=== PATIENT | female | born 1960 | race Caucasian/White ===

== ENCOUNTER 2019-01-05 17:00 | Outpatient (AMBR) | payer BC, OTHER, SELFPAY ==
--- NOTE | 2018-12-21 15:48 | PTNOTE_ITS ---
PT OP Initial Eval Patient Information Visit Reasons: knee pain Medical Diagnosis: Treatment Dx #1: L knee pain Start of Care: 12/21/18 Date of Onset: June 2018 Initial Assessment Subjective Pt returns to therapy s/p L TKA last April and then patella FX in June 2018 when she stood up in the bath. She reports swelling if she stands for more than 20-30 mins and a clunking of the kneecap when she straightens the leg. 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 She reports low pain level but difficulty with prolonged walking. PMH: R TKA 04/28/17, L TKA 04/30/18 Pt goal: to be able to move the knee and stand/walk for longer with less swelling Objective L knee AROM: Strength: Flexion: 90 deg 4/5 Extension: full 3+/5 Gait: decreased WB and stance time on L LE TTP: palpable lateral excursion of patella with knee extension Assessment Pt presents to therapy with decreased knee flexion ROM and strength s/p patella FX about 6 months ago. She can flex to about 90 deg and when she extends the knee there is a palpable lateral excursion of patella consistent with patella instability. She has decreased standing and stair tolerance and function. 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 Independent with HEP 2. Improved knee ROM to 0-110 deg 3. Improved quad strength to 4/5 4. Improved ambulatory tolerance to community distances with symmetrical gait pattern. Treatment Plan 1. Manual therapy 2. Therex 3. Modalities as indicated, moist heat pack, ice, electrical stimulation Frequency and Duration 2x a week for 8 weeks Certification Dates: 12/21/18 to 03/20/19
--- NOTE | 2018-12-28 18:16 | PT.ODAYNRPT ---
PT Outpatient Daily Note Date of Service: December 28, 2018 OP Daily Note Visit Reasons: knee pain Outpatient Physical Therapy Treatment Date: 12/28/18 Subjective: Pt is scared to try the exercise bike because it pops when she extends it and she is not sure if she is hurting the patella that has healing FX's. She notes the L gastrocs are larger than the R and they are tender to touch. Objective: See F/S for therex MT: STM to MPFL with graston and proximal gastrocs x15' Assessment: Proximal gastrocs are moderately TTP and edemic compared to R. The medial patellar region is also TTP and she has medial/lateral instability with WB. The knee clunks at full extension and fear of injuring the patella more limits exercise choices and tolerance. Plan: Continue as tolerated Length of Time (minutes) of Treatment: 30 Minutes Office Procedures PT Procedures PT Date of Service: 12/21/18 OP PT Eval Mod Complex 30 minutes: Yes PT Procedures PT Date of Service: 12/28/18 Therapeutic Exercise 15 minutes: Yes Manual Structural Manager 15 minutes: Yes
--- NOTE | 2018-12-28 18:19 | PTNOTE_ITS ---
PT Outpatient Daily Note Date of Service: December 28, 2018 OP Daily Note Visit Reasons: knee pain Outpatient Physical Therapy Treatment Date: 12/28/18 Subjective: Pt is scared to try the exercise bike because it pops when she extends it and she is not sure if she is hurting the patella that has healing FX 's. She notes the L gastrocs are larger than the R and they are tender to touch. Objective: See F/S for therex MT: STM to MPFL with graston and proximal gastrocs x15' Assessment: Proximal gastrocs are moderately TTP and edemic compared to R. The medial patellar region is also TTP and she has medial/lateral instability with WB. The knee clunks at full extension and fear of injuring the patella more limits exercise choices and tolerance. Plan: Continue as tolerated Length of Time (minutes) of Treatment: 30 Minutes Office Procedures PT Procedures PT Date of Service: 12/21/18 OP PT Eval Mod Complex 30 minutes: Yes PT Procedures PT Date of Service: 12/28/18 Therapeutic Exercise 15 minutes: Yes Manual Industrial Relations Director 15 minutes: Yes
--- NOTE | 2018-12-30 18:34 | PT.ODAYNRPT ---
PT Outpatient Daily Note Date of Service: December 30, 2018 OP Daily Note Visit Reasons: knee pain Outpatient Physical Therapy Treatment Date: 12/30/18 Subjective: Pt is willing to try the exercise bike is afraid of the kneecap popping when she extends it and she is not sure if she is hurting the patella that has healing FX's. She notes the L gastrocs are larger than the R and they are tender to touch. Objective: See F/S for therex Assessment: Improved exercise tolerance today with weak hamstrings due to limited use. She ambulates with straight knee to avoid patella dislocation. Proximal gastrocs are moderately TTP and edemic compared to R. The medial patellar region is also TTP and she has medial/lateral instability with WB. The knee clunks at full extension and fear of injuring the patella more limits exercise choices and tolerance. Plan: Continue as tolerated Length of Time (minutes) of Treatment: 30 Minutes Office Procedures PT Procedures PT Date of Service: 12/21/18 OP PT Eval Mod Complex 30 minutes: Yes PT Procedures PT Date of Service: 12/30/18 Therapeutic Exercise 30 minutes: Yes PT Procedures PT Date of Service: 12/28/18 Therapeutic Exercise 15 minutes: Yes Manual Lasting Machine Operator Hand Method 15 minutes: Yes
--- NOTE | 2019-01-04 13:54 | PT.ODAYNRPT ---
PT Outpatient Daily Note Date of Service: January 03, 2019 OP Daily Note Visit Reasons: knee pain Outpatient Physical Therapy Treatment Date: 01/03/19 Subjective: Pt reports continued popping with bending the knee. Objective: See F/S for therex MT: Antwon tape to pull medial patella x15' Assessment: Good response to strapping tape to reduce popping of patella with knee flexion and stepping up. Pt has fear pain avoidance with most therex due to fear of patella subluxation. Plan: Continue as tolerated Length of Time (minutes) of Treatment: 30 Minutes Office Procedures PT Procedures PT Date of Service: 12/21/18 OP PT Eval Mod Complex 30 minutes: Yes PT Procedures PT Date of Service: 12/30/18 Therapeutic Exercise 30 minutes: Yes PT Procedures PT Date of Service: 01/04/19 Therapeutic Exercise 15 minutes: Yes Manual Communication Specialist 15 minutes: Yes PT Procedures PT Date of Service: 12/28/18 Therapeutic Exercise 15 minutes: Yes Manual Communication Specialist 15 minutes: Yes
--- NOTE | 2019-01-05 17:40 | PTNOTE_ITS ---
PT Outpatient Daily Note Date of Service: January 05, 2019 OP Daily Note Visit Reasons: knee pain Outpatient Physical Therapy Treatment Date: 01/05/19 Subjective: Pt reports less popping with bending the knee with the tape on but she took it off to do the bone stimulator. She bought some Muro tape to do at home. Objective: See F/S for therex MT: Muro tape to pull medial patella x15' Assessment: Good response to strapping tape to reduce popping of patella with knee flexion and stepping up. Pt has fear pain avoidance with most therex due to fear of patella subluxation. Plan: Continue as tolerated Length of Time (minutes) of Treatment: 30 Minutes Office Procedures PT Procedures PT Date of Service: 12/21/18 OP PT Eval Mod Complex 30 minutes: Yes PT Procedures PT Date of Service: 12/30/18 Therapeutic Exercise 30 minutes: Yes PT Procedures PT Date of Service: 01/04/19 Therapeutic Exercise 15 minutes: Yes Manual Pathology Laboratory Director 15 minutes: Yes PT Procedures PT Date of Service: 01/05/19 Therapeutic Exercise 15 minutes: Yes Manual Pathology Laboratory Director 15 minutes: Yes PT Procedures PT Date of Service: 12/28/18 Therapeutic Exercise 15 minutes: Yes Manual Pathology Laboratory Director 15 minutes: Yes
== END 2019-01-06 23:59 | disposition home or self-care (01) ==
PROVIDERS: PCP Orthopaedic Surgery; Referring Provider Orthopaedic Surgery; Visit Provider Orthopaedic Surgery
DX: M25.562 Pain in left knee (principal); R26.2 Difficulty in walking, not elsewhere classified; Z96.652 Presence of left artificial knee joint
CPT/HCPCS: 97110; 97140; 97162